=== PATIENT | male | born 1955 | race Caucasian/White ===

== ENCOUNTER → 2020-08-28 | Outpatient (CLI) | payer BC ==
--- NOTE | 2020-08-28 14:35 | RAD ---
XR ABDOMEN 1V 08/28/2020 10:36 AM INDICATION: Right upper quadrant pain, 4 mm kidney stone on the right COMPARISON: CT abdomen/pelvis 08/29/2008 TECHNIQUE: Single supine view the abdomen is provided. FINDINGS/ IMPRESSION: 1. There is a 2 mm calcification projecting over the right renal shadow which may represent a renal c alculus or calcification within the bowel. No definite calculi projecting over the expected course of the ureters or urinary bladder. Phleboliths are identified within the pelvis. 2. Nonobstructed bowel gas pattern. No dilated loops of small or large bowel. 3. Posterior and interbody fusion is identified from L4 through S1 with bilateral pedicle screws at L 4 and S1 and unilateral right pedicle screw at L5. Electronically signed by: Hina Choi MD (08/28/2020 2:32 PM) [id number]
== END ==
LOC: DXRAD 10:24
PROVIDERS: ATTEND Specialist
DX: N20.0 Calculus of kidney (principal); I87.8 Other specified disorders of veins; M43.27 Fusion of spine, lumbosacral region
CPT/HCPCS: 74018

== ENCOUNTER → 2022-01-18 | Outpatient (CLI) | payer BC ==
--- NOTE | 2022-01-18 09:54 | RAD ---
EXAM: Abdomen, single view. HISTORY: Nephrolithiasis. COMPARISON: 08/28/2020. FINDINGS: Frontal views of the abdomen and pelvis are obtained. There is no convincing renal or urete ral stone. Evaluation is limited due to overlying bowel. There are few pelvic phleboliths. There is c lips within the upper abdomen. There is also a clip within the right hemipelvis. There is instrumente d fusion at L4-S1. IMPRESSION: 1. No convincing nephroureterolithiasis. Evaluation is limited due to overlying bowel. 2. Nonobstructive bowel gas pattern. Electronically signed by: Bridgette Dooley MD (01/18/2022 9:52 AM) [id number]
== END ==
LOC: RAD 09:29
PROVIDERS: ATTEND Specialist
DX: N20.0 Calculus of kidney (principal); I87.8 Other specified disorders of veins
CPT/HCPCS: 74018